=== PATIENT | female | born 1990 | race Caucasian/White ===

== ENCOUNTER 2017-03-18 10:14 | Inpatient (IN) | payer OTHER ==
[~2017-03-18] VITALS: Ht 160 cm; Wt 181.0 kg
[2017-03-18] VITALS (12 sets, daily range): BP systolic 82–120; BP diastolic 50–99; PULSE 79–109; RESP 16–20; Ht 160 cm; Wt 181.0 kg
[~2017-03-18 10:14] MED LIST: FERR-55 PO
[2017-03-18] MEDS ORDERED: METHYLERGONOVINE 0.2 MG INJ IM PRN (10:30)
[2017-03-18] MEDS ORDERED: CEFAZOLIN 2 GM/50 ML (PMX) 50 ML IV SCH (10:30)
[2017-03-18] MEDS ORDERED: CARBOPROST 250 MCG INJ IM PRN (10:30)
[2017-03-18] MEDS ORDERED: MISOPROSTOL 200 MCG TAB PR PRN (10:30)
[2017-03-18] MEDS ORDERED: OXYTOCIN 30 UNITS/LR 500 ML IV PRN (10:30)
[2017-03-18] MEDS ORDERED: PREN1TAB17 PO (10:38)
[2017-03-18] MEDS: LACTATED RINGER'S 1,000 ML IV SCH ×3 (10:54→23:41)
[2017-03-18] MEDS ORDERED: AMPICILLIN 2 GM/NS (PMX) 100 ML IV ONE (11:00)
[2017-03-18 11:58] LABS: ABNORMAL IP MESSAGE 1; BASOPHILS % 0.3 % (0.0-2.0); EOSINOPHILS % 0.4 % (0.0-7.0); HEMATOCRIT 38.7 % (37.0-47.0); LYMPHOCYTES # 1.9 10^3/ul (0.8-2.9); LYMPHOCYTES % 24.4 % (15.0-51.0); MEAN CORPUSCULAR HGB CONC 33.6 g/dl (32.0-37.0); MEAN CORPUSCULAR VOLUME 92.4 fl (82.0-101.0); MONOCYTE # 0.5 10^3/ul (0.3-0.9); MONOCYTES % 5.8 % (0.0-11.0); NEUTROPHIL # 5.5 10^3/ul (1.6-7.5); NEUTROPHILS % 68.6 % (39.0-77.0); PLATELET COUNT 118 10^3/UL (140-415); RED BLOOD COUNT 4.19 10^6/ul (4.20-5.40); RED CELL DISTRIBUTION WIDTH 13.3 % (11.5-14.5)
[2017-03-18 11:59] LABS: MEAN PLATELET VOLUME 13.4 fl (7.4-10.4); POSITIVE DIFF @See below
[2017-03-18 12:18] LABS: INR 1.01; PROTIME 13.3 Sec (12.2-14.2)
[2017-03-18] MEDS ORDERED: AMPICILLIN 1 GM/NS (PMX) 50 ML IV SCH (15:00)
[2017-03-18] MEDS ORDERED: NALOXONE (0.4 MG/ML) INJ IV PRN (15:30)
[2017-03-18] MEDS ORDERED: ZOLPIDEM 5 MG TAB PO PRN (15:30)
[2017-03-18] MEDS ORDERED: METOCLOPRAMIDE 10 MG INJ IV PRN (15:30)
[2017-03-18] MEDS ORDERED: ONDANSETRON 4 MG INJ IV PRN ×2 (15:30)
[2017-03-18] MEDS ORDERED: MEPERIDINE 25 MG INJ IV PRN (15:30)
[2017-03-18] MEDS ORDERED: FENTAnyl 50 MCG/ML VIAL IV PRN ×2 (15:30)
[2017-03-18] MEDS ORDERED: DIPHENHYDRAMINE 50 MG INJ IV PRN ×2 (15:30)
[2017-03-18] MEDS ORDERED: HYDROmorphONE 1 MG/ML SYG IV PRN ×2 (15:30)
[2017-03-18] MEDS ORDERED: HYDROmorphONE (0.2 MG/ML) 10ML SYG IV PRN (15:30)
[2017-03-18] MEDS ORDERED: KETOROLAC 30 MG INJ IV PRN (15:30)
[2017-03-18] MEDS ORDERED: ALBUTEROL 0.083% (NEB) 2.5 MG/3 ML AMP HHN PRN (15:30)
[2017-03-18] MEDS ORDERED: morphine SULFATE/PF (10 MG/10 ML) INJ ONE (17:31)
[2017-03-18] MEDS ORDERED: PHENYLephrine (100 MCG/ML) 5ML SYG ONE ×2 (17:33→18:06)
[2017-03-18] MEDS ORDERED: EPHEDrine SULFATE 50 MG/5 ML SYG ONE (18:26)
--- NOTE | 2017-03-18 18:49 | HP ---
Date/Time of Note Date/Time of Note DATE: 03/18/17 TIME: 18:46 OB - History Hx of Present Free Text/Dictation Admitted for repeat section at term Last Menstrual Period: Aug 12, 2016 Estimated Due Date: Mar 25, 2017 : 3 Para: 2 Care: Good Care Ultrasounds: Normal mid trimester US Obstetrical Complications: None Medical Complications: None Past Family/Social History * Past Medical, Surgical, Family and Obstetric Histories reviewed from chart. Blood Type: O+ Rubella: immune RPR/VDRL: Negative GBS Status: Positive HBsAG: Negative OB Admission Exam Vital Signs Vital Signs Vital Signs Date Time Temp Pulse Resp B/P Pulse Ox O2 Delivery O2 Flow Rate FiO2 03/18/17 10:36 98.1 103/58 Room Air Physical Exam HEENT: WNL Heart: Rhythm Normal Lungs: Clear, Equal Abdomen: WNL Extremities: Normal Reflexes: Normal Cervical Dilatation: None Station: -3 Membranes: Intact Heart Rate: 130's Accelerations: Accelerations Present Decelerations: No Decelerations Varibility: Marked Contractions on Admission: None Last 72 hours Lab Results CBC & BMP 03/18/17 10:49 OB Assessment/Plan Reason for admission: section Other Assessment: Term gestation Review of section 2 Other plan: P delivery SRINI MIRZA MD Mar 18, 2017 18:48
--- NOTE | 2017-03-18 18:50 | OPR ---
Operative Report Planned Procedure Procedure date Mar 18, 2017 Procedure(s) Repeat section Performed by see signature line Assisting provider: MARY ELLEN MURDOCK MD Anesthesiologist: ATA LUNDY Pre-procedure diagnosis Term gestation Via section 2 Anesthesia Type: spinal Procedure Description Under satisfactory anaesthesia a Pfannenstiel incision was made two fingerbreadth above and parallel to the symphysis of pubis around the previous scar and previous scar was removed Incision was extended laterally to the border of the Recti muscles on either sides. Incision was carried down with sharp and blunt dissection until fascia was reached. Anterior Recti muscle fascia was incised in mid portion and incision extended laterally to the border of skin incision. Fascia was mobilized from muscle superiorly and Recti muscles were from midline using sharp and blunt dissection. Peritoneum was visualized; Avoiding bowel and bladder it was incised . Incision was extended superiorly and inferiorly. Bladder blade was placed. Posterior peritoneum covering the lower segment of the uterus and lower segment of the uterus were incised.Low transverse uterine incision was made on lower segment of the uterus. Incision extended laterally to the border of Round Lig. on either sides and baby was delivered from OT. position . Amniotic fluid appeared clear. Cord blood was obtained and cord had 3 vessels . Placenta was delivered spontaneously and appeared intact and complete. Intrauterine cavity was rubbed with a laparotomy sponge. Uterine incision was closed in 2 layers using running stitches of No1 Monocryl. Hemostasis appeared secure. Ovaries and Fallopian tubes were within normal limits. Announcing needle, lap sponge and instrument count to be correct abdomen was closed in layers as follows: Peritoneum and Recti muscles with running stitches of 20 Vicryl. Fascia with running stitch of No 1 PDS. Subcutaneous tissue with running stitches of 20 Chromic and skin was closed using luis. Patient tolerated the procedure well and was transferred to [facility] in good condition. Post-Procedure Post-procedure diagnosis Status post repeat Findings: Live Baby OT position Estimated blood loss: other (500 mL) Specimen(s): no Grafts/Implants: no Complication(s): no Pt Condition post procedure: stable Disposition: PACU Physician Certification I, the undersigned physician, hereby certify that I have discussed the procedure described in this consent form with this patient (or the patient's legal entry level account representative), including: * The risk and benefits of the procedure; * Any adverse reactions that may reasonably be expected to occur; * Any alternative efficacious methods of treatment which may be medically viable ; * The potential problems that may occur during recuperation; * Potential for blood transfusion and associated risks/benefits; and * Any research or economic interest I may have regarding this treatment. I further certify that the patient/legally responsible person was encouraged to ask question and that all questions were answered. SRINI MIRZA MD Mar 18, 2017 18:50
[2017-03-18] MEDS: OXYTOCIN 30 UNITS/LR 500 ML IV SCH ×2 (19:33→23:18)
[2017-03-18] MEDS: HYDROmorphONE (0.2 MG/ML) 10ML SYG IV PRN ×2 (22:00→22:06)
[2017-03-19] MEDS ORDERED: HYDROCODONE/APAP (5/325) TAB PO PRN
[2017-03-19] MEDS ORDERED: NA PHOSPHATE/BIPHOS 133 ML ENEMA PR PRN
[2017-03-19] MEDS ORDERED: CARBOPROST 250 MCG INJ IM PRN
[2017-03-19] MEDS ORDERED: MISOPROSTOL 200 MCG TAB PR PRN
[2017-03-19] MEDS ORDERED: OXYTOCIN 30 UNITS/LR 500 ML IV PRN
[2017-03-19] MEDS ORDERED: METHYLERGONOVINE 0.2 MG INJ IM PRN
[2017-03-19] MEDS: LANOLIN 7 GM TUBE TOP PRN (00:24)
[2017-03-19] MEDS: CEFAZOLIN 2 GM/50 ML (PMX) 50 ML IV SCH ×3 (00:24→15:24)
[2017-03-19 01:00] VITALS: BP 90/55; PULSE 96; RESP 18
[2017-03-19 03:50] VITALS: BP 96/55; PULSE 95; RESP 18
[2017-03-19] MEDS: LACTATED RINGER'S 1,000 ML IV SCH ×3 (04:53→23:41)
[2017-03-19] MEDS: CLINDAMYCIN 300 MG CAP PO SCH ×4 (05:36→17:46)
[2017-03-19] MEDS: KETOROLAC 30 MG INJ IV PRN ×2 (06:14→15:25)
[2017-03-19 07:50] VITALS: BP 90/51; PULSE 68; RESP 18
[2017-03-19] MEDS ORDERED: BISACODYL 10 MG SUPP PR ONE (09:00)
[2017-03-19 09:45] LABS: ABNORMAL IP MESSAGE 1; BASOPHILS % 0.1 % (0.0-2.0); HEMOGLOBIN 10.8 g/dl (12.0-16.0); LYMPHOCYTES # 1.1 10^3/ul (0.8-2.9); LYMPHOCYTES % 14.5 % (15.0-51.0); MEAN CORPUSCULAR HEMOGLOBIN 31.5 pg (29.0-33.0); MEAN CORPUSCULAR HGB CONC 33.8 g/dl (32.0-37.0); MEAN CORPUSCULAR VOLUME 93.3 fl (82.0-101.0); MEAN PLATELET VOLUME 13.1 fl (7.4-10.4); MONOCYTE # 0.4 10^3/ul (0.3-0.9); NEUTROPHIL # 6.3 10^3/ul (1.6-7.5); NEUTROPHILS % 80.1 % (39.0-77.0); PLATELET COUNT 94 10^3/UL (140-415); RED BLOOD COUNT 3.43 10^6/ul (4.20-5.40); RED CELL DISTRIBUTION WIDTH 13.3 % (11.5-14.5); WHITE BLOOD COUNT 7.9 10^3/ul (4.8-10.8)
[2017-03-19 09:51] LABS: POSITIVE DIFF @See below
[2017-03-19 12:00] VITALS: BP 92/50; PULSE 87; RESP 18
[2017-03-19 16:10] VITALS: BP 95/51; PULSE 95; RESP 18
--- NOTE | 2017-03-19 17:27 | PN ---
Date/Time of Note Date/Time of Note DATE: 03/19/17 TIME: 17:26 Assessment/Plan VTE Prophylaxis VTE Prophylaxis Intervention: ambulation Lines/Catheters IV Catheter Type (from Nrs): Peripheral IV Assessment/Plan Assessment/Plan Status post section postop day 1 Advance diet and ambulate Continue to monitor vital signs Subjective 24 Hr Interval Summary No bowel movement Passing flatus Constitutional: BM, ambulates, flatus, improved, no complaints, urine output Pain Control: well controlled Exam/Review of Systems Vital Signs Vitals Vital Signs Date Time Temp Pulse Resp B/P Pulse Ox O2 Delivery O2 Flow Rate FiO2 03/19/17 16:10 98.2 95 18 95/51 Room Air 03/19/17 02:03 98 21 Intake and Output 03/18/17 03/18/17 03/19/17 15:00 23:00 07:00 Intake Total 1000 ml 1075 ml 750 ml Output Total 100 ml 2850 ml 1000 ml Balance 900 ml -1775 ml -250 ml Exam Free Text/Dictation Abdomen is soft nontender and not distended Bowel sounds are present Incision is covered Constitutional: alert, oriented, well developed Psych: nl mood/affect, no complaints Head: atraumatic, normocephalic Eyes: EOMI, nl conjunctiva, nl lids, nl sclera ENMT: mucosa pink and moist, nl external ears & nose, nl lips & teeth, nl nasal mucosa & septum Neck: non-tender, supple Respiratory: clear to auscultation, normal air movement Cardiovascular: nl pulses, regular rate and rhythm Gastrointestinal: nl liver, spleen, non-tender, soft Drains None Musculoskeletal: nl extremities to inspection, nl gait and stance Extremities: normal pulses Neurological: BACON DE RINDER II-XII intact, nl mental status, nl speech, nl strength Skin: nl turgor, rash or lesions Lymph: nl lymph nodes Results Result Diagram: 03/19/17 0900 SRINI MIRZA MD Mar 19, 2017 17:27
[2017-03-19 20:35] VITALS: BP 92/53; PULSE 105; RESP 19
[2017-03-19] MEDS: IBUPROFEN 800 MG TAB PO SCH (21:59)
[2017-03-19] MEDS: SENNA/DOCUSATE NA (8.6MG/50MG) TAB PO SCH (22:00)
[2017-03-20] MEDS ORDERED: BISACODYL 10 MG SUPP PR ONE (00:09)
[2017-03-20] MEDS: CLINDAMYCIN 300 MG CAP PO SCH ×5 (00:12→23:44)
[2017-03-20] MEDS: OXYCODONE/ACETAMINOPHEN (5/325) TAB PO PRN ×3 (00:15→23:44)
[2017-03-20 04:25] VITALS: BP 90/52; PULSE 89; RESP 18
[2017-03-20] MEDS: IBUPROFEN 800 MG TAB PO SCH ×3 (05:37→22:03)
[2017-03-20 08:10] VITALS: BP 92/53; PULSE 81; RESP 20
[2017-03-20] MEDS: SENNA/DOCUSATE NA (8.6MG/50MG) TAB PO SCH ×2 (09:00→22:02)
[2017-03-20 16:00] VITALS: BP 95/53; PULSE 80; RESP 20
[2017-03-20 20:30] VITALS: BP 96/52; PULSE 88; RESP 19
--- NOTE | 2017-03-20 21:21 | PN ---
Date/Time of Note Date/Time of Note DATE: 03/20/17 TIME: 21:20 OB Subjective Subjective Subjective March 20, 2017 Post C section day 2 Doing Well Afebrile Ambulatory Chest Clear Breasts are soft , Nipples are intact Abdomen is soft Fundus is firm Moderate amount of lochia Incision is clean ,No evidence of infection No calf tenderness Current Medications Medications (Trade) Dose Ordered Sig/Grace Route PRN Reason Start Time Stop Time Status Last Admin Dose Admin Lactated Ringer's 1,000 ml @ 125 mls/hr Q8H IV 03/18/17 10:22 03/18/17 23:44 DC 03/18/17 14:39 Cefazolin Sodium/ Dextrose 50 ml @ 100 mls/hr ONCE IV 03/18/17 10:30 03/18/17 23:44 DC Oxytocin/Lactated Ringer's 500 ml @ 125 mls/hr ONCE IV 03/18/17 10:30 03/18/17 23:44 DC 03/18/17 23:18 Oxytocin/Lactated Ringer's 500 ml @ 0 mls/hr ONCE PRN IV For Hemorrhage Management 03/18/17 10:30 03/18/17 23:44 DC Methylergonovine Maleate (Methergine) 0.2 mg ONCE PRN IM VAGINAL BLEEDING 03/18/17 10:30 03/18/17 23:44 DC Carboprost Tromethamine (Hemabate) 250 mcg ONCE PRN IM VAGINAL BLEEDING 03/18/17 10:30 03/18/17 23:44 DC Misoprostol 1000 mcg 1,000 mcg ONCE PRN NE VAGINAL BLEEDING 03/18/17 10:30 03/18/17 23:44 DC Ampicillin 100 ml @ 100 mls/hr ONCE ONCE IV 03/18/17 11:00 03/18/17 11:59 DC 03/18/17 11:24 Ampicillin (Ampicillin 1 Gm/ NS (Pmx)) 50 ml @ 100 mls/hr Q4H IV 03/18/17 15:00 03/18/17 23:44 DC Naloxone HCl (Narcan) 0.1 mg Q2M PRN IV FOR RESP RATE 8 OR LESS 03/18/17 15:30 03/18/17 23:59 DC Ketorolac Tromethamine (Toradol) 30 mg Q6H PRN IV PAIN 03/18/17 15:30 03/19/17 17:31 DC 03/19/17 15:25 Hydromorphone HCl (Dilaudid) 0.2 mg Q3H PRN IV PAIN LEVEL 1-5 03/18/17 15:30 03/18/17 23:59 DC 03/18/17 21:52 Hydromorphone HCl (Dilaudid) 0.4 mg Q3H PRN IV PAIN LEVEL 6-10 03/18/17 15:30 03/18/17 23:59 DC Diphenhydramine HCl (Benadryl) 25 mg Q6H PRN IV ITCHING 03/18/17 15:30 03/18/17 23:59 DC Ondansetron HCl (Zofran Inj) 4 mg Q6H PRN IV NAUSEA AND/OR VOMITING 03/18/17 15:30 03/19/17 17:31 DC Zolpidem Tartrate (Ambien) 5 mg HS MAY REPEAT X 1 PRN PO INSOMNIA 03/18/17 15:30 03/18/17 23:59 DC Hydromorphone HCl (Dilaudid (Rec)) 0.2 mg PACU ORDER PRN IV MILD PAIN LEVEL 1-3 03/18/17 15:30 03/18/17 23:45 DC 03/18/17 22:06 Hydromorphone HCl (Dilaudid (Rec)) 0.4 mg PACU ORDER PRN IV MODERATE PAIN LEVEL 4-6 03/18/17 15:30 03/18/17 23:45 DC Fentanyl (Sublimaze) 25 mcg PACU ORDER PRN IV MILD PAIN LEVEL 1-3 03/18/17 15:30 03/18/17 23:45 DC Fentanyl (Sublimaze) 50 mcg PACU ODER PRN IV MODERATE PAIN LEVEL 4-6 03/18/17 15:30 03/18/17 23:45 DC Ketorolac Tromethamine (Toradol) 30 mg PACU ORDER PRN IV FOR PAIN AFTER IV NARCOTIC MED 03/18/17 15:30 03/18/17 23:45 DC Ondansetron HCl (Zofran Inj) 4 mg PACU ORDER PRN IV NAUSEA AND/OR VOMITING 03/18/17 15:30 03/18/17 23:45 DC Metoclopramide HCl (Reglan) 10 mg PACU ORDER PRN IV NAUSEA AND/OR VOMITING 03/18/17 15:30 03/18/17 23:45 DC 03/18/17 21:52 Albuterol (Proventil 0.083% (Neb)) 2.5 mg PACU ORDER PRN HHN WHEEZING 03/18/17 15:30 03/18/17 23:45 DC Meperidine HCl (Demerol) 25 mg PACU ORDER PRN IV POST-OP RIGORS 03/18/17 15:30 03/18/17 23:45 DC Diphenhydramine HCl (Benadryl) 25 mg PACU ORDER PRN IV PRURITUS 03/18/17 15:30 03/18/17 23:45 DC Morphine Sulfate (Duramorph) 10 mg STK-MED ONCE .ROUTE 03/18/17 17:31 03/18/17 17:32 DC Phenylephrine HCl (Meir-Synephrine Inj Syg) 500 mcg STK-MED ONCE .ROUTE 03/18/17 17:33 03/18/17 17:34 DC Phenylephrine HCl (Meir-Synephrine Inj Syg) 500 mcg STK-MED ONCE .ROUTE 03/18/17 18:06 03/18/17 18:07 DC Ephedrine Sulfate 50 mg 50 mg STK-MED ONCE .ROUTE 03/18/17 18:26 03/18/17 18:27 DC Lactated Ringer's 1,000 ml @ 125 mls/hr Q8H IV 03/18/17 23:41 03/20/17 01:02 DC 03/19/17 12:58 Cefazolin Sodium/ Dextrose (Ancef 2 Gm/50 ml (Pmx)) 50 ml @ 100 mls/hr Q8H IV 03/19/17 00:00 03/19/17 16:29 DC 03/19/17 15:24 Ibuprofen (Motrin) 800 mg Q8 PO 03/19/17 22:00 03/20/17 14:31 Simethicone (Mylicon) 160 mg Q8H PRN PO DISTENSION/GAS/BLOATING 03/19/17 00:00 Senna/Docusate Sodium (Senokot-S) 1 tab BID PO 03/19/17 21:00 03/19/17 22:00 Sodium Biphosphate/ Sodium Phosphate (Fleet Enema) 133 ml DAILY PRN NE CONSTIPATION 03/19/17 00:00 Lanolin ([id number]-Ysqkuu) 1 applic BEDSIDE MEDICATION PRN TOP BEDSIDE FOR HERMILA TO NIPPLES 03/19/17 00:00 03/19/17 00:24 Diphtheria/ Tetanus/Acell Pertussis 0.5 ml 0.5 ml ONCE ONCE IM* 03/21/17 09:00 03/21/17 09:01 Oxytocin/Lactated Ringer's 500 ml @ 0 mls/hr ONCE PRN IV For Hemorrhage Management 03/19/17 00:00 Methylergonovine Maleate (Methergine) 0.2 mg ONCE PRN IM VAGINAL BLEEDING 03/19/17 00:00 Carboprost Tromethamine (Hemabate) 250 mcg ONCE PRN IM VAGINAL BLEEDING 03/19/17 00:00 Misoprostol (Cytotec) 1,000 mcg ONCE PRN NE VAGINAL BLEEDING 03/19/17 00:00 Acetaminophen/ Hydrocodone Bitart (Guston (5/325)) 2 tab Q4H PRN PO PAIN LEVEL 1-5 03/19/17 00:00 Oxycodone/ Acetaminophen (Percocet (5/ 325)) 2 tab Q4H PRN PO PAIN LEVEL 6-10 03/19/17 00:00 03/20/17 06:41 Clindamycin HCl (Cleocin) 300 mg Q6 PO 03/19/17 00:00 03/20/17 17:29 Bisacodyl (Dulcolax Supp) 10 mg ONCE ONCE NE 03/19/17 09:00 03/19/17 09:01 DC 03/20/17 00:27 Bisacodyl (Dulcolax Supp) 10 mg ONCE ONCE NE 03/20/17 00:09 03/20/17 00:10 DC No ankle edema New born is doing well, Breast feeding VALERIA SHELTON MD Mar 20, 2017 21:21
[2017-03-21 04:00] VITALS: BP 92/54; PULSE 81; RESP 18
[2017-03-21] MEDS: CLINDAMYCIN 300 MG CAP PO SCH ×3 (05:44→17:50)
[2017-03-21] MEDS: IBUPROFEN 800 MG TAB PO SCH ×2 (05:45→13:32)
[2017-03-21 08:25] VITALS: BP 114/73; PULSE 81; RESP 16
[2017-03-21] MEDS ORDERED: DIPHTH/TET/ACEL PERTUSS (ADULT) 0.5 ML VIAL IM* ONE (09:00)
[2017-03-21] MEDS: SENNA/DOCUSATE NA (8.6MG/50MG) TAB PO SCH (09:39)
--- NOTE | 2017-03-21 15:10 | PN ---
Date/Time of Note Date/Time of Note DATE: 03/21/17 TIME: 15:07 Assessment/Plan VTE Prophylaxis VTE Prophylaxis Intervention: ambulation Lines/Catheters IV Catheter Type (from Nrsg): Peripheral IV Assessment/Plan Assessment/Plan POD # 2 S/P C/S will ambulate and monitor vital signs Subjective 24 Hr Interval Summary had BM Constitutional: BM, ambulates, flatus, improved, no complaints, urine output Pain Control: well controlled Exam/Review of Systems Vital Signs Vitals Vital Signs Date Time Temp Pulse Resp B/P Pulse Ox O2 Delivery O2 Flow Rate FiO2 03/21/17 04:00 98.2 81 18 92/54 Room Air 03/19/17 16:45 98 21 Exam Free Text/Dictation abdomen: soft BS + Incision healing well , has no induration and or erythema Constitutional: alert, oriented, well developed Psych: nl mood/affect, no complaints Head: atraumatic, normocephalic Eyes: EOMI, nl conjunctiva, nl lids, nl sclera ENMT: mucosa pink and moist, nl external ears & nose, nl lips & teeth, nl nasal mucosa & septum Neck: non-tender, supple Respiratory: clear to auscultation, normal air movement Cardiovascular: nl pulses, regular rate and rhythm Gastrointestinal: nl liver, spleen, non-tender, soft Musculoskeletal: nl extremities to inspection, nl gait and stance Extremities: normal pulses Neurological: 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
--- NOTE | 2017-03-21 15:18 | DS ---
Date/Time of Note Date/Time of Note Home DATE: 03/21/17 TIME: 15:15 Obstetrical Discharge Record Final Diagnosis Final Diagnosis: Term delivered Other Final Diagnosis Status post repeat Section Section: Repeat Condition on Discharge Physical Assessment Last Vitals: See nurse's notes Voiding: Yes Bowel Movement: Yes Breast: Soft, non-tender, Filling Fundus: Firm Abdomen and Incision: Soft bowel sounds present not distended and nontender Incision is clean and healing well without induration or erythema Episiotomy: Not applicable Calf Tenderness: No Patient Condition: Good SRINI MIRZA MD Mar 21, 2017 15:18
--- NOTE | 2017-03-21 15:19 | DS ---
Date/Time of Note Date/Time of Note DATE: 03/21/17 TIME: 15:18 Discharge Summary Admission/Discharge Info Admit Date/Time Mar 18, 2017 at 10:14 Discharge Date/Time March 21, 2017 Discharge Diagnosis Status post repeat Patient Condition: Good Procedures Repeat delivery Hx of Present Illness 27-year-old female had repeat section Hospital Course Uncomplicated Home Meds Reported Medications Vit-Iron Fumarate-FA ( Tablet) 1 Each Tablet, 1 TAB PO DAILY, TAB 03/18/17 Ferrous Sulfate* (Ferrous Sulfate*) 325 Mg Tablet, 325 MG PO TID, TAB 05/03/15 Follow-up Plan For 5 days in clinic Primary Care Provider Vlad Jolley MD Time spent on discharge: > 30 minutes SRINI MIRZA MD Mar 21, 2017 15:19
[2017-03-21] MEDS ORDERED: IBUP800T25 PO (15:21)
--- NOTE | 2017-03-21 15:21 | PD.PPDC ---
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
[2017-03-21 16:00] VITALS: BP 100/55; PULSE 60; RESP 18
[2017-03-21] MEDS: OXYCODONE/ACETAMINOPHEN (5/325) TAB PO PRN (17:50)
[2017-03-21] MEDS: LANOLIN 7 GM TUBE TOP PRN (18:06)
--- NOTE | 2017-03-22 14:37 | CONS ---
Date/Time of Note Date/Time of Note DATE: 03/22/17 TIME: 14:36 Consultation Date/Type/Reason Admit Date/Time Mar 18, 2017 at 10:14 Initial Consult Date 03/19/17 Type of Consultation: Anesthesiology Reason for Consultation Follow up 24 HR Interval Summary Free Text/Dictation Pt seen and examined at bedside on 03/19/17 is POD#1 s/p repeat c/s. Pt received Duramorph spinal for post op pain relief and pain is currently controlled adequately. No N/V/D/MENDOZA/Numbness in extremities. Will follow. Constitutional: improved, no complaints Exam/Review of Systems Vital Signs Vitals Vital Signs Date Time Temp Pulse Resp B/P Pulse Ox O2 Delivery O2 Flow Rate FiO2 03/21/17 16:00 97.9 60 18 100/55 Room Air 03/19/17 16:45 98 21 Results Result Diagram: 03/19/17 0900 ATA LUNDY Mar 22, 2017 14:37
== END 2017-03-21 18:50 | disposition home or self-care (01) | DRG 766 ==
LOC: L-D 10:14 → PP1 23:38
PROVIDERS: ADMIT Obstetrics & Gynecology; ATTEND Obstetrics & Gynecology
PROC: 10D00Z1 Extraction of Products of Conception, Low, Open Approach (ICD-10-PCS; principal; 2017-03-19)
DX: O34.211 Maternal care for low transverse scar from previous cesarean delivery (principal); Z37.0 Single live birth; Z3A.38 38 weeks gestation of pregnancy
CPT/HCPCS: 85025; 85610; 85730; 86592; 86850; 86900; 86901; 87340; 90715; 94760; 99464; J0290; J0690; J1170; J1885; J2274; J2370; J2590; J2765; J7120

== ENCOUNTER 2017-05-10 23:27 | Emergency (ER) | payer OTHER ==
[~2017-05-10] VITALS: Ht 162.6 cm; Wt 75.3 kg
[~2017-05-10 23:27] MED LIST changes: +IBUP800T25 PO; +PREN1TAB17 PO
[2017-05-10 23:31] VITALS: Ht 162.6 cm; Wt 75.3 kg
[2017-05-11] MEDS ORDERED: CEPH-443 PO (03:49)
--- NOTE | 2017-05-11 04:06 | ERD ---
ER Documentation Chief Complaint Chief Complaint wound check abd area HPI 27-year-old female presents here to emergency department for a wound check, patient had a section last October, has had a healing section wound, patient wants to check, she noticed whole and some serous fluid coming out of the wound. Patient denies any pain. Patient denies any fever chills. Patient denies any redness or swelling. ROS All systems reviewed and are negative except as per history of present illness. Medications Home Meds Active Scripts Cephalexin* (Keflex*) 500 Mg Capsule, 500 MG PO QID for 10 Days, CAP Prov:JUSTA QUIROS NP 05/11/17 Ibuprofen* (Ibuprofen*) 800 Mg Tablet, 800 MG PO Q8, #30 TAB 0 Refills Prov:SRINI MIRZA MD 03/21/17 Reported Medications Vit-Iron Fumarate-FA ( Tablet) 1 Each Tablet, 1 TAB PO DAILY, TAB 03/18/17 Ferrous Sulfate* (Ferrous Sulfate*) 325 Mg Tablet, 325 MG PO TID, TAB 05/03/15 Allergies Allergies: Coded Allergies: No Known Drug Allergy (Verified Allergy, Unknown, 03/18/17) PMhx/Soc Medical and Surgical Hx: pt denies Medical Hx History of Surgery: Yes () Anesthesia Reaction: No Hx Neurological Disorder: No Hx Respiratory Disorders: No Hx Cardiac Disorders: No Hx Psychiatric Problems: No Hx Miscellaneous Medical Probl: No Hx Alcohol Use: No Hx Substance Use: No Hx Tobacco Use: No Smoking Status: Never smoker FmHx Family History: No coronary disease, No diabetes, No other Physical Exam Vitals Vital Signs Date Time Temp Pulse Resp B/P Pulse Ox O2 Delivery O2 Flow Rate FiO2 05/10/17 23:31 97.8 72 20 118/66 97 Physical Exam GENERAL: The patient is well developed and appropriate for usual state of health, in no apparent distress. CHEST: Clear to auscultation bilaterally. There are no rales, wheezes or rhonchi. HEART: Regular rate and rhythm. No murmurs, clicks, rubs or gallops. No S3 or S4. ABDOMEN: Soft, nontender and nondistended. Good bowel sounds. No rebound or guarding. No gross peritonitis. No gross organomegaly or masses. No Castro sign or McBurney point tenderness. BACK: No midline or flank tenderness. EXTREMITIES: Equal pulses bilaterally. There is no peripheral clubbing, cyanosis or edema. No focal swelling or erythema. Full range of motion. Grossly neurovascularly intact. NEURO: Alert and oriented. Cranial nerves 2-12 intact. Motor strength in all 4 extremities with 5/5 strength. Sensation grossly intact. Normal speech and gait. SKIN: Small 0.1 cm again noted in the wound, there is some serous fluid coming out of it. No induration noted. No purulent discharge noted. No erythema, nontender. There is no apparent rash or petechia. The skin is warm and dry. HEMATOLOGIC AND LYMPHATIC: There is no evidence of excessive bruising or lymphedema. No gross cervical, axillary, or inguinal lymphadenopathy. Procedures/MDM Procedure note: After patient's verbal consent, the wound was cleaned with Betadine, Steri-Strips were applied in affected area as well as a dressing. Medical decision making: There is an opening noted in the section wound , it is draining serous fluid, no symptoms of any infection, no symptoms of any abscess. Because there is opening, high risk for infection, patient will be given Keflex to prevent infection, is advised to follow-up with primary care doctor in 48 hours for reevaluation of symptoms. No symptoms of any abscess. No symptoms of any necrosis. No symptoms of any sepsis at this time. Patient appears once hemodynamically stable. Prescription was given for Keflex, patient was advised to follow-up with primary care doctor, return to emergency department for any worsening symptoms. Disposition: Home. Stable. Departure Diagnosis: Primary Impression: Encounter for wound re-check Condition: Stable Patient Instructions: Wound Care JUSTA QUIROS NP May 11, 2017 04:05
[2017-05-11 04:11] VITALS: BP 115/62; PULSE 68; RESP 20; TEMP 98.3
== END 2017-05-11 04:12 | disposition home or self-care (01) ==
LOC: FTE 23:27
DX: T81.89XA Other complications of procedures, not elsewhere classified, initial encounter (principal); Y82.8 Other medical devices associated with adverse incidents
CPT/HCPCS: 99283